=== PATIENT | female | born 1970 | race Asian ===

== ENCOUNTER 2020-11-13 20:22 | Emergency (ER) | payer MEDICAID ==
[~2020-11-13] VITALS: Ht 152.4 cm; Wt 63.5 kg
[2020-11-13 20:25] VITALS: BP 148/74
== END 2020-11-13 21:17 | disposition home or self-care (01) ==
LOC: ER 20:26
DX: H11.31 Conjunctival hemorrhage, right eye (principal); H57.89 Other specified disorders of eye and adnexa; I10 Essential (primary) hypertension; J45.909 Unspecified asthma, uncomplicated; Z88.2 Allergy status to sulfonamides